=== PATIENT | female | born 1970 | race African-American/Black ===

== ENCOUNTER 2016-06-21 12:04 | Emergency (ER) | payer OTHER ==
[~2016-06-21 12:04] MED LIST: ADRENOID CAPSU1 EACH; ALDACTAZIDE PO; ALDACTONE100 MG PO; AMBIEN; AMBIEN10 MG PO; AMBIEN12.5 MG PO; AMLODIPINE BESYL5 MG; AMLODIPINE BESYL5 MG PO; ASPIRIN81 M2; ASPIRIN81 MG PO; B-121000 MC1 PO; BUPROPION HCL150 M2 PO; FLEXERIL; GLUCOPHAGE500 MG PO; HYDROCHLOROTHIA25 MG PO; MEDROL DOSEPAK4 MG; MOTRIN600 MG PO; NORVASC PO; PRILOSEC; PRILOSEC20 MG PO; TORADOL10 MG; VICODIN ES 7.51 EAC1; VITAMIN B12-FO1 EACH PO; VITAMIN C PO; VITAMIN C500 M5 PO; VITAMIN C500 MG PO; VITAMIN D1000 UNI2; VITAMIN D350000 UNIT PO; VITAMIN D50000 UNIT PO; WOMEN'S DAILY1 EACH PO; ZOFRAN ODT4 MG PO; ZOLPIDEM TARTRA10 M1 PO
== END 2016-06-21 12:27 | disposition home or self-care (01) ==
LOC: SED 12:04
DX: M54.6 Pain in thoracic spine (principal); I10 Essential (primary) hypertension; F41.9 Anxiety disorder, unspecified; Z79.899 Other long term (current) drug therapy; Z88.8 Allergy status to other drugs, medicaments and biological substances
CPT/HCPCS: 99282

== ENCOUNTER → 2016-10-26 | Outpatient (CLI) | payer OTHER ==
--- NOTE | ~2016-10-26 | MY29 ---
[facility] A Service of [facility] RADIOLOGY TEXT RESULTS PATIENT: KRISTEN FRIEDMAN LOCATION: [facility] : 74 UNIT #: [id number] AGE: [address]: LEONELA DELGADO APRN SEX: F ORDER DR: [id number] [place] [address] [facility] [address] [address]. [place], [place] [address] [id number] O MR#: [id number] Acc #: [id number] NAME: KRISTEN FRIEDMAN : 1970 SEX: F STUDY DATE/TIME: 10/26/2016 11:33 UNIT: [facility] ROOM: STUDY DESCRIPTION: MY MATTHEW SCREENING W/ CAD BILAT Attending Physician: Leonela Delgado Aprn Referring Physician: Leonela Delgado Aprn Ordering Physician: Leonela Delgado Aprn Primary Care Physician: Leonela Delgado Aprn MEDICAL IMAGING REPORT This report is preliminary unless electronic signature is present EXAM Digital screening mammogram 10/26/2016, [facility]. HISTORY 46-year-old woman, no risk elevation. Annual screening. COMPARISON 06/22/2014, 09/07/2015. FINDINGS Digital imaging of each breast was completed utilizing a two-view examination of each breast in craniocaudal and mediolateral-oblique projections. Review and interpretation of digital mammograms include a second review in conjunction with FDA-approved CAD device. There is a normal parenchymal presentation bilaterally consistent with the patient's age. There are no breast masses imaged and no parenchymal asymmetry is visualized. There are no suspicious microcalcifications and I see no focal architectural disturbance. Breast parenchyma is fatty replaced. IMPRESSION Negative screening digital mammogram. One-year followup recommended. Patients over the age of 40 are entered into a reminder system with target due date for the next mammogram. A result letter will also be sent to the patient. BIRADS: 1 Negative Dictated by... Fredi Xiao M.D. [facility] A Service of [facility] RADIOLOGY TEXT RESULTS PATIENT: KRISTEN FRIEDMAN LOCATION: [facility] : 74 UNIT #: [id number] AGE: [address]: LEONELA DELGADO APRN SEX: F ORDER DR: THIS IS AN ELECTRONICALLY VERIFIED REPORT Fredi Xiao M.D. at 11/14/2016 1:04 PM NAKUL/chrissy TD: 11/14/2016 09:56 JOB #: [id number] MEDICAL IMAGING REPORT Page 1 of 1 COPY
== END | disposition home or self-care (01) ==
LOC: CWCC 10:30
DX: Z12.31 Encounter for screening mammogram for malignant neoplasm of breast (principal)
CPT/HCPCS: G0202